=== PATIENT | male | born 1970 | race Caucasian/White ===

== ENCOUNTER 2018-05-30 05:25 | Observation (INO) | payer BC ==
[2018-05-30 06:35] LABS: ABNORMAL IP MESSAGE 1; HEMATOCRIT 24.7 % (42.0-52.0); MEAN CORPUSCULAR HEMOGLOBIN 16.1 pg (29.0-33.0); MEAN CORPUSCULAR HGB CONC 25.9 g/dl (32.0-37.0); MEAN CORPUSCULAR VOLUME 62.1 fl (82.0-101.0); MEAN PLATELET VOLUME 9.5 fl (7.4-10.4); PLATELET COUNT 223 10^3/UL (140-415); POSITIVE DIFF @See below; RED BLOOD COUNT 3.98 10^6/ul (4.70-6.10); RED CELL DISTRIBUTION WIDTH 18.5 % (11.5-14.5)
[2018-05-30 06:35] LABS: WHITE BLOOD COUNT 3.8 10^3/ul (4.8-10.8)
[2018-05-30 06:52] LABS: HEMOGLOBIN 6.4 g/dl (14.0-18.0)
[2018-05-30 06:53] LABS: ADD MAN DIFF? YES
[2018-05-30 06:56] LABS: ALANINE AMINOTRANSFERASE 37 IU/L (13-69); ALBUMIN 4.4 g/dl (3.3-4.9); ALBUMIN/GLOBULIN RATIO 1.37; ALKALINE PHOSPHATASE 57 IU/L (42-121); AMYLASE 63 U/L (11-123); ANION GAP 11 (5-13); ASPARTATE AMINO TRANSFERASE 22 IU/L (15-46); BILIRUBIN,INDIRECT 0.5 mg/dl (0-1.1); BILIRUBIN,TOTAL 0.5 mg/dl (0.2-1.3); BLOOD UREA NITROGEN 17 mg/dl (7-20); CALCIUM 9.3 mg/dl (8.4-10.2); CARBON DIOXIDE 25 mmol/L (21-31); CHLORIDE 107 mmol/L (97-110); CREATININE 0.82 mg/dl (0.61-1.24); Estimated GFR > 60 mL/min (>60); GLUCOSE 95 mg/dl (70-220); LACTATE DEHYDROGENASE 320 IU/L (313-618); LIPASE 43 U/L (23-300); POTASSIUM 4.1 mmol/L (3.5-5.1); SODIUM 143 mmol/L (135-144); TOTAL PROTEIN 7.6 g/dl (6.1-8.1)
[2018-05-30 06:58] LABS: INR 1.03; PROTIME 13.6 Sec (11.9-14.9); PT RATIO 1.1
[2018-05-30 06:59] LABS: PARTIAL THROMBOPLASTIN TIME 27.6 Sec (23.0-35.0)
[2018-05-30] MEDS: SOD CHLORIDE 0.9% 100 ML (07:11)
[2018-05-30] MEDS: IOHEXOL 300MG/ML 150 ML BTL (07:14)
[2018-05-30 07:38] LABS: CREATINE KINASE 39 IU/L (23-200)
[2018-05-30 07:51] LABS: CK INDEX 0.6; CK-MB < 0.22 ng/ml (0.0-2.4); TROPONIN-I < 0.012 ng/ml (0.000-0.120)
[2018-05-30 07:56] LABS: IMMEDIATE SPIN CROSSMATCH 1 2
[2018-05-30] MEDS ORDERED: ONDANSETRON 4 MG INJ IV ×2 (08:30→09:30)
[2018-05-30] MEDS ORDERED: ACETAMINOPHEN 325 MG TAB PO ×2 (08:30→09:30)
[2018-05-30 09:18] LABS: OCCULT BLOOD STOOL NEGATIVE (NEGATIVE)
[2018-05-30] MEDS ORDERED: NACL 0.9% 3 ML SYG IV (09:30)
[2018-05-30] MEDS: SOD CHLORIDE 0.9% 250 ML IV* (09:59)
[2018-05-30 10:02] LABS: LACTATE DEHYDROGENASE 294 IU/L (313-618)
[2018-05-30 10:08] LABS: FERRITIN 2.8 ng/ml (11.1-264.0)
[2018-05-30 10:39] LABS: IRON 25 ug/dl (35-150)
[2018-05-30 10:48] LABS: % IRON SATURATION 5 % SAT (22-52); TOTAL IRON BINDING CAPACITY 462 ug/dl (241-421)
[2018-05-30 11:08] LABS: HIV 1&2 ANTIBODY NEGATIVE (NEGATIVE)
[2018-05-30 11:15] LABS: ANISOCYTOSIS 3+ (0-0); BAND NEUTROPHILS % (M) 1 % (0-4); BASOPHILS % (M) 1 % (0-2); ELLIPTO 3+ (0-0); EOSINOPHILS % (M) 2 % (0-7); HYPOCHROMASIA 3+ (0-0); LYMPHOCYTES #M 1.5 10^3/ul (0.8-2.9); LYMPHOCYTES % (M) 41 % (15-51); MICROCYTOSIS 3+ (0-0); MONOCYTE #M 0.1 10^3/ul (0.3-0.9); MONOCYTES % (M) 3 % (0-11); OVALOCYTES 3+ (0-0); PLATELET ESTIMATE NORMAL; POIKILOCYTOSIS 2+ (0-0); POLYCHROMASIA 3+ (0-0); SEGMENTED NEUTROPHILS (M) % 52 % (39-77); SMUDGE%M 3 % (0-0)
[2018-05-30 11:33] LABS: UR MUCUS MODERATE /HPF (NONE SEEN); UR RBC 0 /HPF (0-5); UR WBC 0 /HPF (0-5)
[2018-05-30 11:37] LABS: ADD UMIC NO; UR ASCORBIC ACID NEGATIVE (NEGATIVE); UR BILIRUBIN (Dip) NEGATIVE (NEGATIVE); UR BLOOD (Dip) NEGATIVE (NEGATIVE); UR CLARITY CLEAR (CLEAR); UR COLOR STRAW (YELLOW); UR GLUCOSE (Dip) NEGATIVE (NEGATIVE); UR KETONES (Dip) NEGATIVE (NEGATIVE); UR LEUKOCYTE ESTERASE (Dip) NEGATIVE Leu/ul (NEGATIVE); UR NITRITE (Dip) NEGATIVE (NEGATIVE); UR SPECIFIC GRAVITY (Dip) 1.059 (1.003-1.030); UR TOTAL PROTEIN (Dip) NEGATIVE (NEGATIVE); UR UROBILINOGEN (Dip) NEGATIVE (NEGATIVE)
[2018-05-30 16:10] LABS: HEMATOCRIT 29.4 % (42.0-52.0); HEMOGLOBIN 8.1 g/dl (14.0-18.0)
[2018-05-30] MEDS: PEG/ELECTROLYTES 4L BTL PO (16:45)
[2018-05-30 16:50] LABS: AMPHETAMINE/METHAMPHETAMINE Negative (NEGATIVE); BARBITURATES Negative (NEGATIVE); BENZODIAZEPINES Negative (NEGATIVE); CANNABINOIDS Negative (NEGATIVE); COCAINE Negative (NEGATIVE); OPIATES Negative (NEGATIVE)
[2018-05-30] MEDS: SOD FERRIC GLUC COMPLX 125 MG in SOD CHLORIDE 0.9% 100 ML IVPB (18:25)
[2018-05-31 06:10] LABS: ADD MAN DIFF? NO
[2018-05-31 06:12] LABS: WHITE BLOOD COUNT 4.9 10^3/ul (4.8-10.8)
[2018-05-31 06:12] LABS: ABNORMAL IP MESSAGE 1; BASOPHILS % 0.8 % (0.0-2.0); EOSINOPHILS # 0.1 10^3/ul (0.0-0.5); EOSINOPHILS % 2.9 % (0.0-7.0); HEMATOCRIT 28.9 % (42.0-52.0); LYMPHOCYTES # 1.5 10^3/ul (0.8-2.9); LYMPHOCYTES % 31.4 % (15.0-51.0); MEAN CORPUSCULAR HEMOGLOBIN 18.1 pg (29.0-33.0); MEAN CORPUSCULAR HGB CONC 27.7 g/dl (32.0-37.0); MEAN CORPUSCULAR VOLUME 65.2 fl (82.0-101.0); MONOCYTE # 0.3 10^3/ul (0.3-0.9); MONOCYTES % 5.9 % (0.0-11.0); NEUTROPHIL # 2.9 10^3/ul (1.6-7.5); PLATELET COUNT 251 10^3/UL (140-415); POSITIVE DIFF @See below; RED BLOOD COUNT 4.43 10^6/ul (4.70-6.10); RED CELL DISTRIBUTION WIDTH 21.5 % (11.5-14.5)
[2018-05-31 06:44] LABS: CHOL/HDL RATIO 3.1 RATIO; CHOLESTEROL 112 mg/dl (100-200); HDL CHOLESTEROL 36 mg/dl (28-71); LDL CHOLESTEROL,CALCULATED 62 mg/dl; TRIGLYCERIDES 72 mg/dl (0-149)
[2018-05-31 06:44] LABS: PHOSPHORUS 3.1 mg/dl (2.5-4.9)
[2018-05-31 06:54] LABS: FREE T4 (FREE THYROXINE) 1.03 ng/dl (0.64-1.79)
[2018-05-31 06:57] LABS: ALANINE AMINOTRANSFERASE 32 IU/L (13-69); ALBUMIN 4.2 g/dl (3.3-4.9); ALBUMIN/GLOBULIN RATIO 1.44; ALKALINE PHOSPHATASE 52 IU/L (42-121); ANION GAP 12 (5-13); ASPARTATE AMINO TRANSFERASE 20 IU/L (15-46); BILIRUBIN,INDIRECT 0.7 mg/dl (0-1.1); BILIRUBIN,TOTAL 0.7 mg/dl (0.2-1.3); BLOOD UREA NITROGEN 11 mg/dl (7-20); CALCIUM 9.2 mg/dl (8.4-10.2); CARBON DIOXIDE 26 mmol/L (21-31); CHLORIDE 105 mmol/L (97-110); CREATININE 0.84 mg/dl (0.61-1.24); Estimated GFR > 60 mL/min (>60); GLUCOSE 90 mg/dl (70-220); SODIUM 143 mmol/L (135-144); TOTAL PROTEIN 7.1 g/dl (6.1-8.1)
[2018-05-31] MEDS ORDERED: PROPOFOL 200 MG INJ (07:00)
[2018-05-31 07:57] LABS: POTASSIUM 4.2 mmol/L (3.5-5.1)
[2018-05-31 12:55] LABS: HEPATITIS B SURFACE ANTIGEN NEGATIVE (NEGATIVE)
[2018-05-31] MEDS: SOD FERRIC GLUC COMPLX 125 MG in SOD CHLORIDE 0.9% 100 ML IVPB ×2 (13:00→17:52)
[2018-05-31 13:12] LABS: HEPATITIS C VIRAL ANTIBODY NEGATIVE (NEGATIVE)
[2018-05-31] MEDS ORDERED: ONDANSETRON 4 MG INJ IV (15:00)
[2018-05-31] MEDS ORDERED: FENTAnyl 50 MCG/ML VIAL (15:36)
[2018-05-31] MEDS ORDERED: PROPOFOL 20 ML (15:36)
[2018-05-31 16:21] LABS: HAPTOGLOBIN 99 mg/dL (43-212); TRANSFERRIN 341 mg/dL (188-341)
[2018-05-31 19:20] LABS: ANION GAP 15 (5-13); BLOOD UREA NITROGEN 13 mg/dl (7-20); CALCIUM 9.9 mg/dl (8.4-10.2); CARBON DIOXIDE 28 mmol/L (21-31); CHLORIDE 101 mmol/L (97-110); CREATININE 0.96 mg/dl (0.61-1.24); Estimated GFR > 60 mL/min (>60); GLUCOSE 117 mg/dl (70-220); SODIUM 144 mmol/L (135-144)
[2018-06-01 06:28] LABS: ADD MAN DIFF? NO
[2018-06-01 06:40] LABS: WHITE BLOOD COUNT 5.7 10^3/ul (4.8-10.8)
[2018-06-01 06:40] LABS: ABNORMAL IP MESSAGE 1; BASOPHILS % 0.7 % (0.0-2.0); EOSINOPHILS # 0.1 10^3/ul (0.0-0.5); EOSINOPHILS % 2.5 % (0.0-7.0); HEMATOCRIT 28.3 % (42.0-52.0); HEMOGLOBIN 7.8 g/dl (14.0-18.0); LYMPHOCYTES # 1.6 10^3/ul (0.8-2.9); LYMPHOCYTES % 27.6 % (15.0-51.0); MEAN CORPUSCULAR HGB CONC 27.6 g/dl (32.0-37.0); MEAN CORPUSCULAR VOLUME 65.2 fl (82.0-101.0); MEAN PLATELET VOLUME 10.8 fl (7.4-10.4); MONOCYTE # 0.4 10^3/ul (0.3-0.9); MONOCYTES % 6.2 % (0.0-11.0); NEUTROPHIL # 3.5 10^3/ul (1.6-7.5); NEUTROPHILS % 62.6 % (39.0-77.0); PLATELET COUNT 235 10^3/UL (140-415); POSITIVE DIFF @See below; RED BLOOD COUNT 4.34 10^6/ul (4.70-6.10); RED CELL DISTRIBUTION WIDTH 22.6 % (11.5-14.5)
[2018-06-01] MEDS: SOD FERRIC GLUC COMPLX 125 MG in SOD CHLORIDE 0.9% 100 ML IVPB (10:56)
[2018-06-01] MEDS ORDERED: FERROUS FUMARATE (SR) TAB PO (21:00)
[2018-06-02 22:27] LABS: PSA, FREE 0.1 ng/mL
== END 2018-06-01 14:15 | disposition home or self-care (01) ==
LOC: E/R 05:25 → 2NE 08:31
DX: D50.0 Iron deficiency anemia secondary to blood loss (chronic) (principal); K57.30 Diverticulosis of large intestine without perforation or abscess without bleeding; M17.11 Unilateral primary osteoarthritis, right knee; K29.00 Acute gastritis without bleeding; K31.819 Angiodysplasia of stomach and duodenum without bleeding
CPT/HCPCS: 36430; 74177; 80048; 80053; 80061; 80307; 81003; 82150; 82270; 82550; 82553; 82728; 83010; 83540; 83615; 83690; 83735; 84100; 84153; 84154; 84439; 84443; 84466; 84484; 85014; 85018; 85025; 85610; 85730; 86703; 86803; 86850; 86900; 86901; 86920; 87340; 88305; 88312; 93005; 99291-25